=== PATIENT | female | born 1980 | race Two or more races ===

== ENCOUNTER 2020-04-23 11:50 | Emergency (ER) | payer OTHER ==
[~2020-04-23] VITALS: Ht 165.1 cm; Wt 64.9 kg
[~2020-04-23 11:50] MED LIST: FOLIC ACID1 MG PO; PRENATAL1 TAB PO
[2020-04-23] MEDS ORDERED: PRILOSEC OTC20 MG (12:12)
== END 2020-04-23 14:23 | disposition home or self-care (01) ==
LOC: ER 11:50
DX: N75.8 Other diseases of Bartholin's gland (principal)